=== PATIENT | female | born 1970 | race Caucasian/White ===

== ENCOUNTER → 2021-03-15 | Outpatient (CLI) | payer OTHER ==
--- NOTE | 2021-03-15 16:23 | RAD ---
XR LUMBAR SPINE 4+V History: Reason: / Spl. Instructions: / History: Technique: 5 views lumbar spine. Comparison: None. Findings: Normal vertebral body height and alignment. No fracture. Mild degenerative disc changes. Mild facet a rthropathy. Postop changes left upper abdomen. Impression: 1. Mild lumbar spondylosis. Electronically signed by: Vazquez Humphries DO (03/15/2021 4:21 PM) [id number]
== END ==
LOC: RAD 11:56
PROVIDERS: ATTEND Family Medicine
DX: M51.36 Other intervertebral disc degeneration, lumbar region (principal); M47.816 Spondylosis without myelopathy or radiculopathy, lumbar region
CPT/HCPCS: 72110

== ENCOUNTER → 2021-11-09 | Outpatient (CLI) | payer OTHER ==
--- NOTE | 2021-11-09 16:46 | RAD ---
DXA BONE DENSITY AXIAL History: Reason: / Spl. Instructions: / History: Postmenopausal Comparison: None. TECHNIQUE: Dual energy x-ray absorptiometry of the lumbar spine and right hip was performed. T-score of average bone mineral density based was calculated based on standard deviations above or below the expected young adult normal value. Diagnostic definitions were established by the [employer]. FINDINGS: The average bone mineral density associated with L1-L4 is 0.912 g/cm^2, corresponding with a T-score of -2.2. The average total bone mineral density associated with right hip is 0.791 g/cm^2, corresponding with a T-score of -1.3. Refer to the worksheets for full detail. IMPRESSION: 1. Osteopenia. Average bone mineral density yields a T-score between -1.0 and -2.5. Fracture risk is increased. Electronically signed by: Vazquez Humphries DO (11/09/2021 4:43 PM) [id number]
--- NOTE | 2021-11-23 15:54 | RAD ---
INDICATION: 51 years of age asymptomatic female patient presents for screening mammography. TECHNIQUE: Full field craniocaudal and mediolateral oblique images of both breasts were obtained usi ng digital technique with tomosynthesis and also analyzed with computer-aided detection software. 2-D images performed with implants in place and 3-D tomosynthesis with implants displaced. COMPARISON: None available. Prior imaging performed at outside hospital not available at time of exam ination. BREAST COMPOSITION: Category B: There are scattered fibroglandular densities. FINDINGS: There is a circumscribed slightly lower, outer lower left breast mass approximately 3 cm from the nip ple with associated indeterminate calcifications. No suspicious masses, microcalcifications or architectural distortion is present to suggest malignanc y in the right breast. Bilateral subpectoral saline implants. The visualized axillae are unremarkable. IMPRESSION: Left outer breast focal asymmetry, findings for which additional imaging is advised. RECOMMENDATION: The patient will be contacted to return for additional imaging and a supplemental rep ort will follow. Recommend spot magnification views and ultrasound for further evaluation. BIRADS 0: INCOMPLETE - NEED ADDITIONAL IMAGING EVALUATION AND/OR PRIOR MAMMOGRAMS FOR COMPARISON. This study was interpreted with the benefit of Computerized Aided Detection (CAD). Patient information is entered into the reminder system with a target due date for the next screening mammogram. Mammography is the most sensitive method for finding small breast cancers, but it does not detect the m all and is not a substitute for careful clinical examination. A negative mammogram does not negate a clinically suspicious finding and should not result in delay in biopsying a clinically suspicious a bnormality. "Our facility is accredited by the [employer] Mammography Program." Electronically signed by: Christian Garcia MD (11/23/2021 3:51 PM) [id number] BIRADS 0-6
== END ==
LOC: MAMMO 14:15
PROVIDERS: ATTEND Family Medicine
DX: Z12.31 Encounter for screening mammogram for malignant neoplasm of breast (principal); M85.89 Other specified disorders of bone density and structure, multiple sites
CPT/HCPCS: 77063; 77067; 77080